=== PATIENT | female | born 1950 | race Two or more races ===

== ENCOUNTER 2017-10-05 00:01 | Inpatient (IN) | payer OTHER ==
[~2017-10-05] VITALS: Ht 165.1 cm; Wt 72.6 kg
[2017-10-05] VITALS (7 sets, daily range): BP systolic 102–159; BP diastolic 50–90
--- NOTE | 2017-10-05 00:22 | NUR ---
PT BBPA, PER FACILITY STAFF "PT HAS A BROKEN L FEMUR". PT IS AAOX1. PT PLACED IN L LEG TRACTION TECHNICAL SALES CONSULTANT BY EMS. SKIN HOT AND MOIST TO TOUCH. RESP EVEN AND UNLABORED. NO S/S OF ACUTE DISTRESS NOTED. VSS. PT SAFETY AND COMFORT MEASURES IN PLACE. PT PLACED IN GOWN AND ON BISQUE KILN PLACER AND POX.AWAITING MD FOR EVAL. WILL CONTINUE TO MONITOR PT.
[2017-10-05] MEDS ORDERED: ACETAMINOPHEN 650 MG/20.3 ML UDC PO ONE (00:30)
--- NOTE | 2017-10-05 00:47 | NUR ---
[facility]: TRACTION SPLINT. CALL TO RETURN GINNER. DISPATCH [phone] EMT: PRAKASH. [address]
--- NOTE | 2017-10-05 00:50 | NUR ---
LAB AT BEDSIDE FOR BLOOD DRAW.
[2017-10-05] MEDS ORDERED: ACETAMINOPHEN 325 MG TABLET ONE (00:57)
[2017-10-05 01:00] LABS: BASOPHILS % (AUTO) 0.3 % (0.0-2.0); HEMATOCRIT 27 % (33-45); HEMOGLOBIN 8.7 g/dL (11.5-14.8); LYMPHOCYTES # (AUTO) 2.1 /CMM (0.8-4.8); LYMPHOCYTES % (AUTO) 23.3 % (20.0-44.0); MEAN CORPUSCULAR HGB CONC 32 g/dl (31.0-36.0); MEAN CORPUSCULAR VOLUME 82 fL (82-100); MONOCYTES # (AUTO) 1.1 /CMM (0.1-1.30); MONOCYTES % (AUTO) 12.4 % (2.0-12.0); NEUTROPHILS # (AUTO) 5.9 /CMM (1.8-8.9); PLATELET COUNT (AUTO) 167 /CMM (150-450); RDW COEFFICIENT OF VARIATION 16.8 (11.5-15.0); RED BLOOD CELL COUNT(AUTO) 3.29 MIL/uL (4.0-5.2); WHITE BLOOD COUNT (AUTO) 9.2 K/uL (4.3-11.0)
--- NOTE | 2017-10-05 01:07 | NUR ---
JOSE RUIZ [phone]
[2017-10-05 01:13] LABS: CALCIUM, SERUM 9.5 mg/dL (8.5-10.1); CARBON DIOXIDE 33 mmol/L (21-32); CHLORIDE 103 mmol/L (98-107); CREATININE 0.6 mg/dL (0.6-1.3); GLUCOSE 142 mg/dL (74-106); POTASSIUM 4.1 mmol/L (3.5-5.1); SODIUM SERUM 139 mmol/L (136-145); UREA NITROGEN, BLOOD 26 mg/dL (7-18)
[2017-10-05 01:16] LABS: INR 1.04 (0.87-1.13)
[2017-10-05 01:19] LABS: ALANINE AMINOTRANSFERASE 22 U/L (12-78); ALBUMIN 2.3 g/dL (3.4-5.0); ALKALINE PHOSPHATASE 36 U/L (46-116); ASPARTATE AMINOTRANSFERASE 19 U/L (15-37); BILIRUBIN,DIRECT 0.1 mg/dL (0.0-0.2); BILIRUBIN,TOTAL 0.4 mg/dL (0.2-1.0); TOTAL PROTEIN, SERUM 5.5 g/dL (6.4-8.2)
[2017-10-05 01:21] LABS: TROPONIN I < 0.017 ng/mL (0.00-0.056)
[2017-10-05 02:03] LABS: APPEARANCE,URINE CLOUDY (CLEAR); BILIRUBIN,URINE NEGATIVE (NEGATIVE); BLOOD, URINE 3+ Ery/uL (NEGATIVE); COLOR,URINE YELLOW (YELLOW); KETONES,URINE TRACE (NEGATIVE); LEUKOCYTE ESTERASE ,URINE 2+ (NEGATIVE); NITRITE, URINE POSITIVE (NEGATIVE); PROTEIN,URINE 1+ mg/dl (NEGATIVE); UGLUCOSE NEGATIVE (NEGATIVE)
[2017-10-05 02:07] LABS: BACTERIA,URINE Moderate /HPF (None Seen); MUCUS,URINE Moderate /LPF (None Seen); SQUAMOUS EPITHELIAL CELL,UR Few /HPF (None Seen); WBC,URINE TOO NUMEROUS TO COUN /HPF (0-3)
--- NOTE | 2017-10-05 02:20 | NUR ---
BLOCK SETTER GYPSUM CALLED FOR BED
--- NOTE | 2017-10-05 02:21 | NUR ---
PT ASSIGNED TO [facility] 114-2
--- NOTE | 2017-10-05 02:23 | NUR ---
CALLED [facility], ON-CALL PHYSICIAN WAS PAGED. AWAITING CALL BACK FROM DR. MORELAND
--- NOTE | 2017-10-05 02:25 | NUR ---
DR MORELAND WAS REACHED. DR REIS SPEAKING TO DR MORELAND
--- NOTE | 2017-10-05 02:27 | NUR ---
CALLED [facility] FOR PANEL ADMISSION.
[2017-10-05] MEDS ORDERED: PIPERACILLIN /TAZOBACTAM 3.375 G in IV D5W 50 ML IV ONE (02:30)
[2017-10-05] MEDS ORDERED: IV NS 0.9% 1,000 ML BAG IV ONE (02:30)
--- NOTE | 2017-10-05 02:33 | NUR ---
[facility].
[2017-10-05] MEDS ORDERED: PIPERACILLIN /TAZOBACTAM 3.375 G VIAL IV ONE (02:37)
--- NOTE | 2017-10-05 02:50 | NUR ---
TRACTION SPLINT REMOVED AND NEW SPLINT APPLIED TO LEFT LEG BY EMT PER MD'S ORDERS. NO S/S OF DISTRESS NOTED IN PT.
[2017-10-05] MEDS ORDERED: ACETAMINOPHEN 325 MG TABLET PO PRN (03:00)
[2017-10-05] MEDS ORDERED: ONDANSETRON HCL/PF 4 MG/2 ML VIAL IVP PRN (03:00)
[2017-10-05] MEDS ORDERED: MORPHINE SULFATE INJ 4 MG/ML DISP.SYRIN IV PRN (03:00)
[2017-10-05] MEDS ORDERED: MAGNESIUM HYDROXIDE 30 ML UDC PO PRN ×2 (03:00→14:00)
[2017-10-05] MEDS ORDERED: IV LR 1000 ML 1,000 ML IV PRN (03:00)
[2017-10-05] MEDS ORDERED: Z GUARD REMEDY 2 OZ OINT TP PRN (03:00)
[2017-10-05] MEDS ORDERED: MAG HYDROX/AL HYDROX/SIMETH 30 ML UDC PO PRN (03:00)
[2017-10-05] MEDS ORDERED: ZOLPIDEM TARTRATE 5 MG TABLET PO PRN (03:00)
--- NOTE | 2017-10-05 03:05 | NUR ---
PT TO CT.
--- NOTE | 2017-10-05 03:08 | NUR ---
SPOKE TO PRACHI [facility]ATCH [facility] S[facility] ASSOCIATE SALES MANAGER. DISPATCH [phone]. PER PRACHI WILL F/U WITH PRAKASH ([address]) FOR ASSOCIATE SALES MANAGER.
--- NOTE | 2017-10-05 03:49 | NUR ---
report given to telephone plant power operatordorothy el for moose
[2017-10-05] MEDS ORDERED: MORPHINE SULFATE INJ 2 MG/ML DISP.SYRIN IV STA (04:00)
[2017-10-05] MEDS ORDERED: MORPHINE SULFATE INJ 2 MG/ML DISP.SYRIN ONE (04:00)
--- NOTE | 2017-10-05 04:15 | NUR ---
NADIRA RN NOTES RECEIVED PATIENT'S REPORT FROM DERMATOLOGIST AND DERMATOPATHOLOGIST DAVON. PT IS IN STABLE CONDITION,SR ON HEAD MVA REACTOR OPERATOR, A/O X1/ CONFUSED. B/P150/68, HR 82, T-98.4,O2-97. NO LABORED BREATHING OS SOB NOTED AT THIS TIME. LEFT HAND IV LINE 20G IS PATIENT, INTACT WITH 2000ML 0.9% NS WIDE OPEN. TAMAYO CATHETER IS IN PLACE WITH ADEQUATE AMOUNT OF YELLOW URINE DRAINAGE. ALL SAFETY MEASURES ARE IMPLEMENTED, BED IN LOW, LOCKED POSITION, SIDE RAILS ARE UP X2, CALL LIGHT IN REACH. WILL CONTINUE TO MONITOR. Addendum: 10/05/17 at 0507 by RU SCHMID RN SPO2 IN ROOM AIR -97%
--- NOTE | 2017-10-05 07:30 | NUR ---
DURALUMIN METALWORKER OPENING NOTES RECEIVED PATIENT'S REPORT FROM PM NURSE. PT IS IN STABLE CONDITION,SR 73 ON LIBRARIAN SCHOOL, A/O X1 WITH PERIODS OF CONFUSION .NO SOB NOTED AT THIS TIME. LEFT HAND IV LINE 20G IS PATIENT, INTACT . TAMAYO CATHETER IS IN PLACE . ALL SAFETY MEASURES ARE MAINTAINED.BED IN LOW, LOCKED POSITION, SIDE RAILS ARE UP X2, CALL LIGHT IN REACH. WILL CONTINUE TO MONITOR.
[2017-10-05] MEDS ORDERED: PIOG45TA5 PO (07:54)
[2017-10-05] MEDS ORDERED: PANT40TA4 PO (07:54)
[2017-10-05] MEDS ORDERED: ERGO500014 PO (07:54)
[2017-10-05] MEDS ORDERED: MAGN400O6 PO (07:54)
[2017-10-05] MEDS ORDERED: DONE5TAB34 PO (07:54)
[2017-10-05] MEDS ORDERED: ATOR40TA PO (07:54)
[2017-10-05] MEDS ORDERED: BISA10SU8 RC (07:54)
[2017-10-05] MEDS ORDERED: DIVA500T2 PO (07:54)
[2017-10-05] MEDS ORDERED: BISA5TAB10 PO (07:54)
[2017-10-05] MEDS ORDERED: MULT-659 PO (07:54)
[2017-10-05] MEDS ORDERED: FURO-145 PO (07:54)
[2017-10-05] MEDS ORDERED: ACET-868 PO (07:54)
[2017-10-05] MEDS ORDERED: METF-440 PO (07:54)
[2017-10-05] MEDS ORDERED: DOCU250C14 PO (07:54)
[2017-10-05] MEDS ORDERED: OMEG1CAP PO (07:54)
[2017-10-05] MEDS ORDERED: LISI-603 PO (07:54)
[2017-10-05] MEDS ORDERED: ASPI-1169 PO (07:54)
--- NOTE | 2017-10-05 08:00 | NUR ---
RN NOTE PATIENT IS STARTED TO PULLING OUT TUBES AND TAKING OFF THE CHEST LEADS.ADVISE HER NOT TO DO IT,BUT NOT FOLLOWING THE COMMANDS.STARTED TO BITE WHEN FIXING THE LINEN AND START PUTTING LINEN IN THE MOUTH AND CHEWING.PATIENT IS DRY,REPOSITIONED.NO IMPROVEMENT.HOLDING IV CANNULA HIDE ALL THE TUBES.ALL NEED MET.CONTINUE TO MONITOR.
[2017-10-05] MEDS: PANTOPRAZOLE 40 MG VIAL IV SCH (08:45)
[2017-10-05] MEDS: IV LR 1000 ML 1,000 ML IV PRN (08:47)
--- NOTE | 2017-10-05 09:00 | NUR ---
RN NOTES PATIENT BEHAVIOR IS STILL CONTINUING.PULING OUT LINES AND TAKING OFF LEADS. MADE AWARE.PLACED ON SOFT BILATERAL RESTRAINTS.
[2017-10-05] MEDS ORDERED: LEVOFLOXACIN 500 MG /D5W 100ML 500 MG in PREMIX 1 EA IV SCH (11:00)
[2017-10-05 11:37] LABS: THYROID STIMULATING HORMONE 4.437 uIU/mL (0.358-3.74)
[2017-10-05] MEDS ORDERED: PIPERACILLIN /TAZOBACTAM 3.375 G in IV NS 0.9% 100 ML IV SCH (13:00)
[2017-10-05] MEDS: PIPERACILLIN /TAZOBACTAM 3.375 G in IV NS 0.9% 100 ML IV SCH ×3 (13:42→23:29)
[2017-10-05] MEDS ORDERED: BISACODYL SUPP (10 MG) 10 MG/SUPP.RECT SUPP.RECT RC PRN (14:00)
--- NOTE | 2017-10-05 15:22 | NUR ---
RN NOTE GOT NEW ORDER FOR MAG 2G IV X1 FOR LOW MAGNESIUM OF 1.0. MADE AWARE .
[2017-10-05] MEDS ORDERED: Magnesium 1 GM/2 ML VIAL IV ONE (15:30)
[2017-10-05] MEDS: Magnesium 1GM/D5W 100ML PREMIX 100 ML IV SCH ×2 (15:44→18:25)
[2017-10-05] MEDS ORDERED: DIVALPROEX SODIUM 500 MG TABLET.DR PO SCH (17:00)
[2017-10-05] MEDS: VALPROIC ACID 250 MG/5 ML UDC PO SCH (17:45)
--- NOTE | 2017-10-05 19:00 | NUR ---
SERVER SHIFT END NOTES . PT IS IN STABLE CONDITION,SR 74 ON FUEL CELL TEST ENGINEER, A/O X1 WITH PERIODS OF CONFUSION .NO SOB NOTED AT THIS TIME. LEFT HAND IV LINE 20G IS PATIENT, INTACT . TAMAYO CATHETER IS IN PLACE . ALL SAFETY MEASURES ARE MAINTAINED.BED IN LOW, LOCKED POSITION, SIDE RAILS ARE UP X2, CALL LIGHT IN REACH.SON WAS AT BEDSIDE.EXPLAINED ABOUT THE PROCEDURE OF ORIF TOMORROW.HE WANT TO WAIT UNTIL TOMORROW AND WILL TALK TO THE DOCTOR TOMORROW.HE DONT GIVE CONSENT FOR PROCEDURE WILL ENDORSE TO PM NURSE FOR NICHOLAS.
--- NOTE | 2017-10-05 19:35 | NUR ---
MORNING SHOW PRODUCER NOTES RECEIVED PT ON BED. WITH SON ON THE BEDSIDE FEEDING THE PT. PT IS ALERT ORIENTED X2 WITH CONFUSION. ON ROOM AIR SATURATING WELL. ON TELE MONITOR SINUS TACHY 126. IV ACCESS ON LEFT HAND #20 SL. LR @75CC/HR RUNNING WELL AND NO SIGN OF REDNESS. PT ON SOFT BILATERAL RESTRAINTS ON BOTH WRIST. HEAD OF BED ELEVATED. BED ALARM ON. SIDE RAILS UP. CALL LIGHT IS PLACED WITHIN REACH. WILL CONTINUE TO MONITOR PT CLOSELY.
--- NOTE | 2017-10-05 20:11 | NUR ---
MAGNETIC GRINDER OPERATOR NOTES CALL DIRECTOR OF GOLF DR FOR PT HIGH BLOOD RPESSURE OF 185/101. WILL PLACED ORDER VERBALIZED BY THE DIRECTOR OF GOLF. Addendum: 10/05/17 at 2012 by BHANU JOHNSON RN BLOOD PRESSURE OF 170/109 HR OF 132.
[2017-10-05] MEDS ORDERED: hydrALAZINE HCL IV 20 MG VIAL IV PRN (20:30)
--- NOTE | 2017-10-05 21:00 | NUR ---
STUDENT AMBASSADOR NOTES PT SON STILL UNDECIDED ABOUT THE ORIF PROCEDURE. WILL FOLLOW UP TOMORROW MORNING
[2017-10-05] MEDS: DONEPEZIL 5 MG TABLET PO SCH (21:16)
[2017-10-05] MEDS: ATORVASTATIN 40 MG TABLET PO SCH (21:16)
[2017-10-06] VITALS: BP 136/52
[2017-10-06] MEDS: IV LR 1000 ML 1,000 ML IV PRN (03:05)
[2017-10-06 04:00] VITALS: BP 151/76
[2017-10-06] MEDS: PIPERACILLIN /TAZOBACTAM 3.375 G in IV NS 0.9% 100 ML IV SCH (05:00)
[2017-10-06 06:59] LABS: HEMATOCRIT 23 % (33-45); HEMOGLOBIN 7.4 g/dL (11.5-14.8); LYMPHOCYTES # (AUTO) 0.1 /CMM (0.8-4.8); LYMPHOCYTES % (AUTO) 2.4 % (20.0-44.0); MEAN CORPUSCULAR HGB CONC 33 g/dl (31.0-36.0); MEAN CORPUSCULAR VOLUME 82 fL (82-100); MONOCYTES # (AUTO) 0.5 /CMM (0.1-1.30); MONOCYTES % (AUTO) 8.8 % (2.0-12.0); NEUTROPHILS % (AUTO) 88.8 % (43.0-81.0); PLATELET COUNT (AUTO) 114 /CMM (150-450); RDW COEFFICIENT OF VARIATION 17.1 (11.5-15.0); RED BLOOD CELL COUNT(AUTO) 2.74 MIL/uL (4.0-5.2); WHITE BLOOD COUNT (AUTO) 5.7 K/uL (4.3-11.0)
--- NOTE | 2017-10-06 07:10 | NUR ---
WELDER FITTER ARC OPENING NOTES RECEIVED PT IN BED IN SEMI DESOUZA POSITION. NO SIGNS OF RESPIRATORY DISTRESS ,SR 84 ON MOLD LOFT WORKER, LEFT HAND IV LINE 20G IS PATIENT AND INTACT . TAMAYO CATHETER IS IN PLACE DRAINING BY GRAVITY . ALL SAFETY MEASURES ARE MAINTAINED.BED IN LOW, LOCKED POSITION, SIDE RAILS UP, CALL LIGHT WITHIN REACH. WILL CONTINUE TO MONITOR.
[2017-10-06 07:13] LABS: ALBUMIN 1.8 g/dL (3.4-5.0); BILIRUBIN,TOTAL 0.5 mg/dL (0.2-1.0); CALCIUM, SERUM 8.5 mg/dL (8.5-10.1); CREATININE 0.4 mg/dL (0.6-1.3); PHOSPHORUS 2.7 mg/dL (2.5-4.9); POTASSIUM 3.9 mmol/L (3.5-5.1); TOTAL PROTEIN, SERUM 4.7 g/dL (6.4-8.2)
--- NOTE | 2017-10-06 07:23 | NUR ---
MARKETING ANALYTICS SPECIALIST NOTES NO ACUTE CHANGES NOTED DURING THE SHIFT. DUE MEDS GIVEN. PROVIDED COMFORT AND SAFETY. PT NPO. ENDORSE TO THE AM NURSE FOR NICHOLAS.
[2017-10-06 07:26] LABS: THYROID STIMULATING HORMONE 3.349 uIU/mL (0.358-3.74)
[2017-10-06] MEDS: PANTOPRAZOLE 40 MG TABLET.DR PO SCH (07:30)
[2017-10-06 07:50] LABS: MAGNESIUM 1.2 mg/dL (1.8-2.4)
[2017-10-06 08:00] VITALS: BP 128/78
[2017-10-06] MEDS: PANTOPRAZOLE 40 MG VIAL IV SCH (08:01)
[2017-10-06] MEDS ORDERED: CLONIDINE HCL 0.1 MG TABLET PO PRN (08:30)
--- NOTE | 2017-10-06 08:30 | NUR ---
RN NOTES SEEN BY DR. BRUNER, NOTIFIED RE: PT'S H/H, WITH NEW ORDERS MADE, PT HAS NO SIGNS OF BLEEDING AT THIS TIME. CALLED GEOVANNI (PT'S SON) TO OBTAIN BLOOD TRANSFUSION AND SURGERY CONSENT, SON STILL UNDECIDED AT THIS TIME, SON SAID TO CALL BACK WITHIN THE DAY
[2017-10-06] MEDS ORDERED: Medication Not On Formulary EA (Omega-3 Fatty Acids/Fish Oil (Fish Oil 1,000 Mg Capsule) PO SCH (09:00)
[2017-10-06] MEDS: VALPROIC ACID 250 MG/5 ML UDC PO SCH ×3 (09:00→16:35)
[2017-10-06] MEDS: FUROSEMIDE 20 MG TABLET PO SCH (09:00)
[2017-10-06] MEDS: BISACODYL (5 MG) 5 MG TABLET.DR PO SCH (09:00)
[2017-10-06] MEDS: MULTIVIT, IRON, MIN NO. 8, FA 1 TAB PO SCH (09:00)
[2017-10-06] MEDS: LISINOPRIL (20MG) 20 MG TABLET PO SCH (09:00)
[2017-10-06] MEDS: DOCUSATE SODIUM 250 MG CAPSULE PO SCH (09:00)
[2017-10-06] MEDS: Magnesium 1GM/D5W 100ML PREMIX 100 ML IV SCH ×2 (09:45→11:24)
[2017-10-06 10:05] LABS: FERRITIN 19 ng/mL (8-388)
[2017-10-06 10:14] LABS: IRON, SERUM 17 ug/dl (50-175); TOTAL IRON BINDING CAPACITY 251 ug/dl (250-450)
--- NOTE | 2017-10-06 12:17 | NUR ---
RN NOTES PT HAS A BLOOD TRANSFUSION ORDER; CALLED AND SPOKE WITH PTS SON TO OBTAIN TRANSFUSION CONSENT BUT ACCORDING TO HIM PT IS A jEHOVAS WITNESS AND DECLINES TRANSFUSION. PT HAS NO ACTIVE BLEEDING NOTED. INFORMED DR ANDRES
--- NOTE | 2017-10-06 12:25 | NUR ---
RN NOTES NOTIFIED DR. ANDRES RE: GEOVANNI (PT'S SON DECISION) THAT THEY ARE REFUSING BLOOD TRANSFUSION WITH ORDER TO D/C BT, WILL CONTINUE TO MONITOR,
[2017-10-06] MEDS: LEVOFLOXACIN (500MG) 500 MG TABLET PO SCH (12:33)
[2017-10-06 15:42] VITALS: BP 128/78
[2017-10-06 16:00] VITALS: BP 128/78
[2017-10-06] MEDS: FERROUS SULFATE (325 MG) 325 MG/TAB TABLET PO SCH (16:35)
[2017-10-06] MEDS: RIVAROXABAN 10 MG TABLET PO SCH (17:16)
--- NOTE | 2017-10-06 19:10 | NUR ---
RN CLOSING NOTES PT IN BED, IN NO SIGNS OF RESPIRATORY DISTRESS, NO S/SX OF BLEEDING NOTED, PT'S SON AT BEDSIDE, ALL NEEDS ATTENDED, SAFETY MEASURES OBSERVED AT ALL TIMES, ENDORSED TO PM SHIFT NURSE
--- NOTE | 2017-10-06 19:30 | NUR ---
RN NOTES: RECEIVED LYING ON BED IN SEMI FOWLERS POSITION,A/OX1 WITH PERIODS OF CONFUSION,SON PRESENT AT BED SIDE FEEDING HIS MOTHER,ON KNEE IMMOBILIZER,TAMAYO CATH ON SITE, DRAINING INTO YELLOWISH COLORED URINE AT 50CC LEVEL,CANNULA ON LH G#20 SALINE LOCK;ON BILATERAL SOFT RESTRAINT, MONITOR FOR SKIN CHANGES AND GOOD CIRCULATION,PER ENDORSEMENT SON REFUSE FOR BT AND SURGICAL PROCEDURE;PT WAS DISCONTINUE;BED LOW AND LOCKED, CALL LIGHT WITHIN EASY REACH, FALL, SAFETY AND ASPIRATION PRECAUTION OBSERVED.
[2017-10-06 20:00] VITALS: BP 155/70
--- NOTE | 2017-10-06 22:00 | NUR ---
RN NOTES: PATIENT HAD LARGE AMOUNT OF BM, SEMI SOFT IN CONSISTENCY, CLEAN AND CHANGE; TURNING AND REPOSITIONING DONE;CALL LIGHT WITHION EASY REACH, SOFT RESTRAIN SITE CHECK FOR SKIN CHANGES AND CIRCULATION,ON CLOSE VISUAL CHECK.
[2017-10-06] MEDS: DONEPEZIL 5 MG TABLET PO SCH (22:40)
[2017-10-06] MEDS: ATORVASTATIN 40 MG TABLET PO SCH (22:40)
--- NOTE | 2017-10-07 02:07 | NUR ---
RN NOTES: REPOSITION,ASLEEP IN THE NIGHT NO PAIN OR DISCOMFORT NOTED.
--- NOTE | 2017-10-07 03:30 | NUR ---
RN NOTES: AWAKE SHE HAD HER 2ND BM, CLEAN AND CHANGE SHE WAS GIVEN PRUNE JUICE BY HIS SON IN THE AFTERNOON, EFFECTIVE.
[2017-10-07 04:00] VITALS: BP 151/71
--- NOTE | 2017-10-07 06:13 | NUR ---
RN NOTES: FOR BLOOD TEST, WHEN TUFT MACHINE OPERATOR CAME SHE STRONGLY REFUSED,INSTRUCT LABORATORY STAFF TO COME BACK AGAIN LATER WHEN THE SON IS HERE, SHE MIGHT AGREE WITH THE BLOOD TEST.
--- NOTE | 2017-10-07 06:53 | NUR ---
RN NOTES: AWAKE, LYING COMFORTABLY, BED LOW AND LOCKED, CALL LIGHT WITHIN EASY REACH, ON BILATERAL SOFT RESTRAIN,GOOD CIRCULATION, SKIN CONTINUE TO BE MONITORED,ENDORSED FOR CONTINUITY OF CARE.
--- NOTE | 2017-10-07 07:20 | NUR ---
MS RN OPENING NOTES RECEIVED PATIENT AWAKE IN BED IN NO ACUTE SIGNS OF DISTRESS. A/OX1, SAME VERBALLY RESPONSIVE, SEEMS COMFORTABLE AND IN NO SIGNS OF PAIN. PT ON B/L SOFT WRIST RESTRAINT, GOOD PERIPHERAL PULSES NOTED. ON ROOM AIR, RESPIRATION EVEN AND UNLABORED. IV ACCESS ON LEFT HAND INTACT AND PATENT, NO SWELLING OR REDNESS TO SITE NOTED. TAMAYO CATH IN PLACE AND ACTIVELY DRAINING CLEAR YELLOW OUTPUT TO BEDSIDE COLLECTION BAG. HOB ELEVATED.BED IN LOW/LOCKED POSITION WITH SIDE-RAILS UP X3. CALL LIGHT WITHIN REACH. WILL MAINTAIN ALL SAFETY PRECAUTIONS AND CONTINUE TO MONITOR PT'S STATUS.
[2017-10-07] MEDS: PANTOPRAZOLE 40 MG TABLET.DR PO SCH (07:42)
[2017-10-07 08:00] VITALS: BP 143/73
[2017-10-07] MEDS: DOCUSATE SODIUM 250 MG CAPSULE PO SCH (09:11)
[2017-10-07] MEDS: VALPROIC ACID 250 MG/5 ML UDC PO SCH ×3 (09:11→16:33)
[2017-10-07] MEDS: PANTOPRAZOLE 40 MG VIAL IV SCH (09:11)
[2017-10-07] MEDS: FUROSEMIDE 20 MG TABLET PO SCH (09:12)
[2017-10-07] MEDS: FERROUS SULFATE (325 MG) 325 MG/TAB TABLET PO SCH (09:12)
[2017-10-07] MEDS: MULTIVIT, IRON, MIN NO. 8, FA 1 TAB PO SCH (09:12)
[2017-10-07] MEDS: BISACODYL (5 MG) 5 MG TABLET.DR PO SCH (09:12)
[2017-10-07] MEDS: LISINOPRIL (20MG) 20 MG TABLET PO SCH (09:13)
[2017-10-07] MEDS ORDERED: RIVA10TA PO (09:56)
[2017-10-07] MEDS ORDERED: FERR325T28 PO (09:56)
[2017-10-07] MEDS ORDERED: LEVO500T2 PO (09:56)
[2017-10-07] MEDS ORDERED: HYDR-552 PO (09:57)
[2017-10-07] MEDS: LEVOFLOXACIN (500MG) 500 MG TABLET PO SCH (11:24)
--- NOTE | 2017-10-07 12:52 | NUR ---
RN NOTES HOT ROLL INSPECTOR CAME TO DRAW BLOOD FOR PT BUT PT REFUSED AND BECAME AGITATED. WILL CONTINUE TO MONITOR.
[2017-10-07] MEDS ORDERED: SOD FERRIC GLUC 125 MG in IV NS 0.9% 100 ML IV SCH (14:00)
--- NOTE | 2017-10-07 14:21 | NUR ---
RN NOTES PT SEEN BY DR ANDRES WITH ORDER TO DISCONTINUE B/L WRIST RESTRAINTS AND DISCHARGE PT TO SNF TODAY.
--- NOTE | 2017-10-07 15:05 | NUR ---
RN NOTES PATIENT FOR DISCHARGE THIS AFTERNOON TO [facility]. CALLED AND REPORT GIVEN TO NURSE SENIOR STAFF ACCOUNTANT JASKARAN. SON GEOVANNI RUIZ INFORMED THAT PT WILL BE DISCHARGED THIS AFTERNOON TO [facility].
[2017-10-07 16:00] VITALS: BP 136/68
[2017-10-07] MEDS: RIVAROXABAN 10 MG TABLET PO SCH (16:35)
--- NOTE | 2017-10-07 17:54 | NUR ---
RN DISCHARGED NOTES PATIENT DISCHARGED TO [facility] IN STABLE CONDITION. A/O X1-2 WITH PERIODS OF CONFUSION NOTED DURING THE DAY. PATIENT DIDN'T DO BOWEL MOVEMENT DURING TOUR SO UN-ABLE TO COLLECT STOOL FOR OCCULT BLOOD. IV ACCESS ON LEFT HAND REMOVED WITH NO BLEEDING NOTED. TAMAYO CATHETER REMOVED WITH NO HEMATURIA NOTED. LEFT LEG IMMOBILIZER KEPT IN PLACE. V/S TAKEN AND RECORDED. PHOTOS OF SKIN TAKEN AND RECORDED. PT HAS NO BELONGINGS. ALL NEEDS AND CARE PROVIDED WELL. PT HAD A HARD TIME TO COMPREHEND WHEN HEALTH TEACHINGS GIVEN. EXIT CARE COMPLETED AND REVIEWED. PT LEFT UNIT VIA [employer] @ 0779 IN NO ACUTE SIGNS OF DISTRESS ACCOMPANIED BY 2 EMT'S. MD AND CHARGE NURSE AWARE OF PT'S DISCHARGE.
[2017-10-11] MEDS ORDERED: ERGOCALCIFEROL (VITAMIN D 2) 50,000 UNIT CAPSULE PO SCH (14:00)
== END 2017-10-07 17:36 | DRG 340 ==
LOC: ER 00:11 → TELE1 03:07 → MEDSG1 10-06 10:14
PROVIDERS: ADMIT Hospitalist; ATTEND Hospitalist
DX: S72.492A Other fracture of lower end of left femur, initial encounter for closed fracture (principal); N17.0 Acute kidney failure with tubular necrosis; G92 Toxic encephalopathy; E87.2 Acidosis; I50.9 Heart failure, unspecified; I11.0 Hypertensive heart disease with heart failure; D68.59 Other primary thrombophilia; N39.0 Urinary tract infection, site not specified; E83.42 Hypomagnesemia; D63.8 Anemia in other chronic diseases classified elsewhere; E11.9 Type 2 diabetes mellitus without complications; E78.5 Hyperlipidemia, unspecified; K21.9 Gastro-esophageal reflux disease without esophagitis; W19.XXXA Unspecified fall, initial encounter; Z86.73 Personal history of transient ischemic attack (TIA), and cerebral infarction without residual deficits; I35.0 Nonrheumatic aortic (valve) stenosis; G40.909 Epilepsy, unspecified, not intractable, without status epilepticus; F03.90 Unspecified dementia, unspecified severity, without behavioral disturbance, psychotic disturbance, mood disturbance, and anxiety; Z74.01 Bed confinement status; Z79.84 Long term (current) use of oral hypoglycemic drugs; Y93.9 Activity, unspecified; Y92.129 Unspecified place in nursing home as the place of occurrence of the external cause; B96.20 Unspecified Escherichia coli [E. coli] as the cause of diseases classified elsewhere
CPT/HCPCS: 36415; 71045-TC; 73552; 73560-TC; 73564-TC; 73590-TC; 73700-TC; 80048-TC; 80053-TC; 80061-TC; 80076-TC; 81000-TC; 82306; 82728-TC; 82962-TC; 83540-TC; 83605-TC; 83735-TC; 84100-TC; 84439-TC; 84443-TC; 84484-TC; 85025-TC; 85730-TC; 86850-TC; 86921-TC; 87040-TC; 87086-TC; 87186-TC; 93307-TC; A4216; A4606; A6403; C9113; J1956; J2270; J2543; J2916; J3475; J7030; J7060; J7120; Z7610